=== PATIENT | male | born 1990 | race American Indian/Alaskan Native ===

== ENCOUNTER 2016-12-07 21:18 | Emergency (ER) | payer SELFPAY ==
[2016-12-07 21:30] VITALS: BP 145/84; PULSE 83; RESP 16; TEMP 98.8; O2SAT 100
[2016-12-07] MEDS ORDERED: Naproxen 500 MG TAB PO STA (22:02)
--- NOTE | 2016-12-07 22:05 | ED PDOC ---
HPI: Dental Pain/Injury Time Seen by Provider: 12/07/16 22:02 Chief Complaint (Nursing): Dental Pain Chief Complaint (Provider): dental pain History Per: Patient (26 y/o male here with dental pain x 2-3 days worsening. Denies any fevers/chills.) Past Medical History Reviewed: Historical Data, Nursing Documentation, Vital Signs Vital Signs: Last Vital Signs Temp 98.8 F 12/07/16 21:27 Pulse 83 12/07/16 21:27 Resp 16 12/07/16 21:27 BP 145/84 12/07/16 21:27 Pulse Ox 100 12/07/16 21:27 - Family History Family History: States: No Known Family Hx - Home Medications Home Medications: Ambulatory Orders Medication Instructions Recorded Naproxen [Naprosyn Tab] 375 mg PO Q8 PRN #21 tab 12/07/16 - Allergies Allergies/Adverse Reactions: Allergies Allergy/AdvReac Type Severity Reaction Status Date / Time No Known Allergies Allergy Verified 12/07/16 21:27 Review of Systems ROS Statement: Except As Marked, All Systems Reviewed And Found Negative ENT: Positive for: Other (dental pain) Physical Exam - Reviewed Nursing Documentation Reviewed: Yes Vital Signs Reviewed: Yes - Physical Exam Appears: Positive for: Well, Non-toxic, No Acute Distress Head Exam: Positive for: ATRAUMATIC, NORMAL INSPECTION, NORMOCEPHALIC Skin: Positive for: Normal Color, Warm, DRY Eye Exam: Positive for: EOMI, Normal appearance, PERRL ENT: Positive for: Normal ENT Inspection, Other (minimal gingival swelling/ no abscess noted.) Neck: Positive for: Normal, Painless ROM Cardiovascular/Chest: Positive for: Regular Rate, Rhythm Respiratory: Positive for: CNT, Normal Breath Sounds Gastrointestinal/Abdominal: Positive for: Normal Exam, Bowel Sounds, Soft Back: Positive for: Normal Inspection Extremity: Positive for: Normal ROM Neurologic/Psych: Positive for: Alert, Oriented - ECG O2 Sat by Pulse Oximetry: 100 - Progress ED Course And Treament: Naproxen 500 mg x 1 dose Pen VK 500 mg x 1 dose Disposition - Clinical Impression Clinical Impression: Toothache - Patient ED Disposition Is Patient to be Admitted: No - Disposition Referrals: Ry Lim DDS [Staff Provider] - Disposition: Routine/Home Disposition Time: 22:04 Condition: FAIR Prescriptions: Naproxen [Naprosyn Tab] 375 mg PO Q8 PRN #21 tab PRN Reason: Pain, Moderate (4-7) Instructions: Toothache (ED) [facility]Work Ex[facility]
== END 2016-12-07 22:42 | disposition home or self-care (01) ==
LOC: H.ER 21:18
DX: K08.89 Other specified disorders of teeth and supporting structures (principal)